=== PATIENT | female | born 1995 | race African-American/Black ===

== ENCOUNTER 2018-01-23 11:55 | Inpatient (IN) ==
[2018-01-23] MEDS ORDERED: ONDANSETRON 4 MG/2 ML VIAL IV PRN (14:56)
[2018-01-23] MEDS ORDERED: MEPERIDINE 50 MG/1 ML VIAL IM PRN (14:56)
[2018-01-23] MEDS ORDERED: BUTORPHANOL 1 MG/ML VIAL IM PRN (15:04)
[2018-01-23] MEDS ORDERED: BUTORPHANOL 2 MG/ML VIAL IV PRN (15:06)
[2018-01-23] MEDS ORDERED: BUTORPHANOL 1 MG/ML VIAL IV PRN (15:09)
[2018-01-23 15:23] LABS: Basophils % 0.2 % (0.0-0.8); Eosinophils % 0.1 % (0.00-10.9); Hemoglobin 12.2 GM/DL (12.0-16.0); Immature Granulocytes % 0.7 %; Immature Granulocytes Absolute 0.09 #; Lymphocytes % 14.5 % (21.3-54.2); Mean Corpuscular HGB Conc 34.9 GM/DL (32-36); Mean Corpuscular Hemoglobin 32 PG (27-34); Mean Corpuscular Volume 92.1 FL (87-102); Mean Platelet Volume 10.3 FL (9.6-12.0); Monocytes # 0.6 10*3/uL (0.11-0.8); Monocytes % 4.8 % (1.7-12.7); Neutrophils # 10.7 10*3/uL (1.4-7.4); Neutrophils % 79.7 % (38.7-73.9); Platelet Count 307 T/CUMM (130-400); Red Cell Distribution Width 13.2 % (9.3-17.3); White Blood Count 13.5 T/CUMM (4-12)
[2018-01-23 15:51] LABS: Bilirubin,Total 0.5 MG/DL (0.2-1.0); Calcium 8.9 MG/DL (8.5-10.1); Osmolality,Calculated 267.8 MOS/KG (273-304); Potassium 3.9 MMOL/L (3.5-5.1); Uric Acid 3.6 MG/DL (2.6-6.0)
[2018-01-23] MEDS: LACTATED RINGERS 1,000 ML IV SCH ×3 (16:05→19:10)
[2018-01-23] MEDS ORDERED: PROMETHAZINE 25 MG/1 ML VIAL IM ONE (16:07)
[2018-01-23] MEDS ORDERED: ONDANSETRON 4 MG/2 ML VIAL IV ONE (16:07)
[2018-01-23] MEDS ORDERED: CITRIC ACID/SODIUM CITRATE 30 ML UDCUP PO ONE (16:07)
[2018-01-23] MEDS ORDERED: ePHEDrine 50 MG/ML AMP IV PRN (16:07)
[2018-01-23] MEDS ORDERED: FAMOTIDINE 20 MG/2 ML VIAL IV ONE (16:07)
[2018-01-23] MEDS ORDERED: diphenhydrAMINE 50 MG/1 ML VIAL IV PRN ×2 (16:07)
[2018-01-23] MEDS ORDERED: hydrOXYzine HCL 25 MG/1 ML VIAL IM PRN (16:07)
[2018-01-23] MEDS ORDERED: fentaNYL 2 MCG/ROPIV 0.2% EPID 150 ML EPIDURAL SCH (16:30)
[2018-01-23 19:59] LABS: Apearance,Urine Slightly Hazy (Clear); Bilirubin,Urine Negative (Negative); Blood, Urine Negative (Negative); Glucose,Urine (UA) Negative (Negative); Ketones,Urine 80 mg/dL (Negative); Mucus,Urine Few /LPF (Occasional); Nitrite,Urine Negative (Negative); Protein,Urine Negative; RBC,Urine 3 /HPF (0-4); Squamous Epithelial Cell,Urine Occasional /HPF (0-10); Urine Color Yellow (Yellow); Urine Specific Gravity 1.015 (1.001-1.035); Urine Urobilinogen < 2.0 EU/DL (0.2-1.0); WBC,Urine 1 /HPF (0-6)
[2018-01-23] MEDS ORDERED: OXYTOCIN/LR 30 UNIT/1,000 ML BAG IV ONE (23:22)
[2018-01-23] MEDS ORDERED: LIDOCAINE 1% 50 ML VIAL ONE (23:34)
[2018-01-23] MEDS ORDERED: miSOPROStol 200 MCG TABLET ONE (23:34)
[2018-01-24 00:48] LABS: Cord Arterial Blood HCO3 20.1 MMOL/L
[2018-01-24 00:50] LABS: Cord Venous Blood HCO3 21.7 MMOL/L; Cord Venous Blood PCO2 44.6 MMHG; Cord Venous Blood PO2 27.7
[2018-01-24] MEDS ORDERED: MEASLES/MUMPS/RUBELLA VACCINE 0.5 ML VIAL SUBCUT ONE (03:30)
[2018-01-24] MEDS ORDERED: IBUPROFEN 800 MG TABLET PO PRN (03:30)
[2018-01-24] MEDS ORDERED: RHO(D) IMMUNE GLOBULIN 300 MCG SYRINGE IM ONE (03:30)
[2018-01-24] MEDS ORDERED: ACETAMINOPHEN/CODEINE 300-30 MG TABLET PO PRN (03:30)
[2018-01-24] MEDS ORDERED: BENZOCAINE 20%/MENTHOL 0.5% SPRAY 56 GM CAN TOP PRN (03:30)
[2018-01-24] MEDS ORDERED: oxyCODONE/ACETAMINOPHEN 5-325 MG TABLET PO PRN (03:30)
[2018-01-24] MEDS ORDERED: BISACODYL 10 MG SUPP RECTAL PRN (03:30)
[2018-01-24] MEDS ORDERED: DIPH/TET/ACEL PERT BOOSTER VACCINE 0.5 ML VIAL IM ONE (03:30)
[2018-01-24] MEDS ORDERED: HYDROCORTISONE 2.5% RECTAL CREAM 30 GM TUBE TOP PRN (03:30)
[2018-01-24] MEDS ORDERED: ACETAMINOPHEN 325 MG TABLET PO PRN (03:30)
[2018-01-24] MEDS ORDERED: WITCH HAZEL PADS 100/JAR TOP PRN (03:30)
[2018-01-24] MEDS ORDERED: LANOLIN 50% CREAM 0.3 OZ TUBE TOP PRN (03:30)
[2018-01-24] MEDS ORDERED: OXYTOCIN/LR 20 UNIT/1,000 ML BAG IV ONE (03:59)
[2018-01-24] MEDS: oxyCODONE/ACETAMINOPHEN 5-325 MG TABLET PO PRN ×2 (04:44→19:31)
[2018-01-24 07:38] LABS: Basophils % 0.2 % (0.0-0.8); Eosinophils % 0.1 % (0.00-10.9); Immature Granulocytes % 0.4 %; Immature Granulocytes Absolute 0.07 #; Lymphocytes # 1.4 10*3/uL (1.4-4.0); Lymphocytes % 8.7 % (21.3-54.2); Mean Corpuscular HGB Conc 35.7 GM/DL (32-36); Mean Corpuscular Hemoglobin 33 PG (27-34); Mean Corpuscular Volume 90.9 FL (87-102); Mean Platelet Volume 10.2 FL (9.6-12.0); Monocytes # 0.7 10*3/uL (0.11-0.8); Monocytes % 4.7 % (1.7-12.7); Neutrophils # 13.7 10*3/uL (1.4-7.4); Neutrophils % 85.9 % (38.7-73.9); Platelet Count 227 T/CUMM (130-400); Red Blood Count 3.08 MC/CUMM (3.8-5.5); Red Cell Distribution Width 13.2 % (9.3-17.3); White Blood Count 15.9 T/CUMM (4-12)
[2018-01-24] MEDS ORDERED: IBUPROFEN 800 MG TABLET ONE (08:11)
[2018-01-24] MEDS: DOCUSATE SODIUM 100 MG CAPSULE PO SCH ×2 (08:14→19:31)
[2018-01-25] MEDS: DOCUSATE SODIUM 100 MG CAPSULE PO SCH ×2 (06:43→08:00)
[2018-01-25] MEDS: oxyCODONE/ACETAMINOPHEN 5-325 MG TABLET PO PRN (08:01)
[2018-01-25] MEDS ORDERED: ONDANSETRON 4 MG TABLET PO PRN (08:27)
[2018-01-25 12:10] VITALS: BP 131/80
== END 2018-01-25 14:30 | disposition home or self-care (01) | DRG 560 ==
LOC: N.LDOUT 11:55 → N.LD 11:57 → N.OB 01-24 03:05
PROVIDERS: ADMIT Obstetrics & Gynecology; ATTEND Obstetrics & Gynecology

== ENCOUNTER 2022-10-30 10:28 | Observation (INO) ==
[2022-10-29 11:42] LABS: Basophils % 0.4 % (0.0-0.8); Eosinophils # 0.2 10*3/uL (0.0-0.87); Eosinophils % 2.3 % (0.00-10.9); Hematocrit 34.1 VOL% (35.7-47.0); Hemoglobin 11.7 GM/DL (12.0-16.0); Immature Granulocytes % 0.4 %; Immature Granulocytes Absolute 0.03 #; Lymphocytes # 1.5 10*3/uL (1.4-4.0); Lymphocytes % 19.8 % (21.3-54.2); Mean Corpuscular HGB Conc 34.3 GM/DL (32-36); Mean Corpuscular Volume 92.9 FL (87-102); Mean Platelet Volume 10.6 FL (9.6-12.0); Monocytes # 0.4 10*3/uL (0.11-0.8); Monocytes % 5.2 % (1.7-12.7); Neutrophils % 71.9 % (38.7-73.9); Platelet Count 260 T/CUMM (130-400); Red Blood Count 3.67 MC/CUMM (3.8-5.5); White Blood Count 7.8 T/CUMM (4-12)
[2022-10-29 11:54] LABS: Albumin 3.3 G/DL (3.4-5.0); Bilirubin,Total 0.4 MG/DL (0.20-1.00); Osmolality,Calculated 266.1 MOS/KG (273-304); Potassium 4.3 MMOL/L (3.5-5.1)
[2022-10-29 12:27] LABS: HIV Antigen/Antibody Result Nonreactive (Nonreactive)
[~2022-10-30 10:28] MED LIST: LACTATED RINGERS 1,000 ML IV SCH
[2022-10-30] MEDS ORDERED: LEVALBUTEROL 1.25 MG/3 ML NEB RESP TX ONE (10:57)
[2022-10-30] MEDS ORDERED: FAMOTIDINE 20 MG TABLET PO ONE (10:57)
[2022-10-30] MEDS ORDERED: fentaNYL 100 MCG/2 ML VIAL ONE (15:11)
[2022-10-30] MEDS ORDERED: ONDANSETRON 4 MG/2 ML VIAL ONE (15:27)
[2022-10-30] MEDS ORDERED: METOCLOPRAMIDE 10 MG/2 ML VIAL ONE (15:27)
[2022-10-30] MEDS ORDERED: LACTATED RINGERS 1,000 ML IV ONE (15:29)
[2022-10-30] MEDS ORDERED: BENZOCAINE/MENTHOL LOZENGE 18/BOX PO PRN (15:40)
[2022-10-30] MEDS ORDERED: DOCUSATE SODIUM 100 MG CAPSULE PO PRN (15:40)
[2022-10-30] MEDS ORDERED: BISACODYL 10 MG SUPP RECTAL PRN (15:40)
[2022-10-30] MEDS ORDERED: ACETAMINOPHEN 325 MG TABLET PO PRN (15:40)
[2022-10-30] MEDS ORDERED: MAGNESIUM HYDROXIDE SUSP 30 ML UDCUP PO PRN (15:40)
[2022-10-30] MEDS ORDERED: IBUPROFEN 800 MG TABLET PO PRN (15:40)
[2022-10-30] MEDS ORDERED: LACTATED RINGERS 1,000 ML IV SCH (16:00)
[2022-10-30] MEDS: oxyCODONE/ACETAMINOPHEN 5-325 MG TABLET PO PRN (16:43)
[2022-10-31] MEDS: ONDANSETRON 4 MG/2 ML VIAL IV PRN ×2 (00:19→09:30)
[2022-10-31 04:58] LABS: Basophils % 0.2 % (0.0-0.8); Eosinophils # 0.2 10*3/uL (0.0-0.87); Eosinophils % 1.9 % (0.00-10.9); Hematocrit 30.2 VOL% (35.7-47.0); Hemoglobin 10.3 GM/DL (12.0-16.0); Immature Granulocytes % 0.4 %; Immature Granulocytes Absolute 0.03 #; Lymphocytes # 1.8 10*3/uL (1.4-4.0); Lymphocytes % 21.5 % (21.3-54.2); Mean Corpuscular HGB Conc 34.1 GM/DL (32-36); Mean Corpuscular Volume 92.6 FL (87-102); Mean Platelet Volume 10.2 FL (9.6-12.0); Monocytes # 0.6 10*3/uL (0.11-0.8); Monocytes % 6.6 % (1.7-12.7); Neutrophils % 69.4 % (38.7-73.9); Platelet Count 223 T/CUMM (130-400); Red Blood Count 3.26 MC/CUMM (3.8-5.5); Red Cell Distribution Width 12.8 % (9.3-17.3); White Blood Count 8.5 T/CUMM (4-12)
[2022-10-31 07:13] VITALS: BP 99/55
[2022-10-31] MEDS: oxyCODONE/ACETAMINOPHEN 5-325 MG TABLET PO PRN (08:20)
[2022-10-31] MEDS ORDERED: BISACODYL 10 MG SUPP RECTAL ONE (09:24)
== END 2022-10-31 13:10 | disposition home or self-care (01) ==
LOC: N.OR 10:28 → N.SDSINP 10:28 → EDSDCBED 16:34 → N.OB 16:34 → N.OR 10-31 13:10 → UNDODEPSDC 10-31 18:26 → N.OB 10-31 18:28
PROVIDERS: ADMIT Obstetrics & Gynecology; ATTEND Obstetrics & Gynecology